=== PATIENT | female | born 2000 | race Caucasian/White ===

== ENCOUNTER 2019-07-01 16:31 | Emergency (ER) | payer SELFPAY ==
[~2019-07-01] VITALS: Ht 165.1 cm; Wt 95.3 kg
[2019-07-01 16:35] VITALS: BP 139/99
--- NOTE | 2019-07-01 16:37 | NUR ---
PT SENT TO ER LOBBY TO WAIT FOR AVAILABLE BED.
--- NOTE | 2019-07-01 18:38 | NUR ---
PATIENT LEFT WITHOUT BEING SEEN BY DR. CHASE. NO FURTHER CARE PROVIDED FOR PATIENT.
== END 2019-07-01 18:38 | disposition left against medical advice (07) ==
LOC: MED 16:31
DX: Z53.21 Procedure and treatment not carried out due to patient leaving prior to being seen by health care provider (principal); R06.02 Shortness of breath